=== PATIENT | female | born 1970 | race Caucasian/White ===

== ENCOUNTER 2018-09-12 13:48 | Emergency (ER) | payer OTHER ==
[~2018-09-12] VITALS: Ht 162.6 cm; Wt 81.6 kg
[~2018-09-12 13:48] MED LIST: ALDOMET500 MG PO; KETO10TA2 PO; OXYC1TAB9 PO
[2018-09-12] MEDS ORDERED: NORVASC10 MG PO (14:00)
== END 2018-09-12 15:53 | disposition home or self-care (01) ==
LOC: ER 13:48
DX: S60.212A Contusion of left wrist, initial encounter (principal); S80.02XA Contusion of left knee, initial encounter; W18.39XA Other fall on same level, initial encounter; Y93.89 Activity, other specified; Y92.238 Other place in hospital as the place of occurrence of the external cause; Y99.8 Other external cause status

== ENCOUNTER → 2019-05-12 | Outpatient (CLI) | payer OTHER ==
[~2019-05-12] MED LIST changes: +NORVASC10 MG PO
== END | disposition home or self-care (01) ==
LOC: MAMO-SONO 10:05
DX: Z12.31 Encounter for screening mammogram for malignant neoplasm of breast (principal)

== ENCOUNTER 2020-07-21 15:15 | Outpatient (CLI) | payer OTHER | END 2020-07-21 15:34 | disposition home or self-care (01) | LOC: MAMO-SONO 15:15 | PROVIDERS: ATTEND Anesthesiology | DX: Z12.31 Encounter for screening mammogram for malignant neoplasm of breast (principal); N63.10 Unspecified lump in the right breast, unspecified quadrant ==

== ENCOUNTER 2020-08-12 07:00 | Outpatient (CLI) | payer OTHER | END 2020-08-12 15:49 | disposition home or self-care (01) | LOC: PPH VACUNA 07:00 | DX: Z23 Encounter for immunization (principal) ==

== ENCOUNTER 2021-09-19 09:11 | Outpatient (CLI) | payer OTHER | END 2021-09-19 09:28 | disposition home or self-care (01) | LOC: MAMO-SONO 09:11 | PROVIDERS: ATTEND Anesthesiology | DX: N60.11 Diffuse cystic mastopathy of right breast (principal); Z12.31 Encounter for screening mammogram for malignant neoplasm of breast ==